=== PATIENT | female | born 1980 | race Caucasian/White ===

== ENCOUNTER 2018-06-12 14:13 | Emergency (ER) | payer OTHER ==
[~2018-06-12] VITALS: Ht 167.6 cm; Wt 64.4 kg
[~2018-06-12 14:13] MED LIST: ACEBUTCAFT PO; AZIT250 PO; CEPH500 PO; CIPR500 PO; CITA20 PO; CLIN150 PO; CLIN300 PO; CONEST1.25 PO; CYCL10 PO; Cortisporin Ear10 ML LEFTEAR; DIPH50 PO; HYDACE5 PO; HYDR25SUP PR; LEVFLO500 PO; METPHE5 PO; NAPR500 PO; OXYACE5T PO; PERM5TC TOP; PHENA200 PO; PROM25 PO; PROP80 PO; RANI150 PO; RXOXYACE PO; RXTRAM50 PO; SULTRIDS PO; TOPI50 PO; TRAM50 PO; ZOLP10 PO
[2018-06-12] MEDS ORDERED: Bactrim Ds Tab1 EACH PO (14:45)
== END 2018-06-12 15:10 | disposition home or self-care (01) ==
LOC: ER 14:13
DX: L02.415 Cutaneous abscess of right lower limb (principal); F17.200 Nicotine dependence, unspecified, uncomplicated; Z88.0 Allergy status to penicillin; Z88.5 Allergy status to narcotic agent; Z88.8 Allergy status to other drugs, medicaments and biological substances; Z88.6 Allergy status to analgesic agent
CPT/HCPCS: 10060; 99282-25